=== PATIENT | male | born 1950 | race Two or more races ===

== ENCOUNTER 2019-12-26 10:54 | Observation (INO) | payer MEDICAID, MEDICARE ==
[~2019-12-26] VITALS: Ht 175.3 cm; Wt 74.8 kg
[~2019-12-26 10:54] MED LIST: ACET-2065 PO; ALBU18HF INH; BUDE10.22 INH; IPRA4AER INH; LEVO500T47 PO; MONT10TA6 PO; PRED10TA PO; PRED10TA14 PO; TRAZ50TA66 PO
--- NOTE | 2019-12-26 11:26 | NUR ---
PT AMBULATORY FROM TRIAGE. C/O LEFT SIDE C/P ONSET THIS MORNING AT 0700, DESCRIBES A PRESSURE FEELING, INCREASES WITH INSPIRATION AND PALPATION. STATES PAIN CURRENTLY 7/10. DR PERALES AT BEDSIDE, PT ASSESSMENT POC DISCUSSED AND QUESTIONS ANSWERED.
[2019-12-26] MEDS ORDERED: NITROGLYCERIN SINGLE TAB 0.4 MG SL PRN (11:30)
[2019-12-26] MEDS ORDERED: ASPIRIN 81 MG TABLET CHEW PO ONE (11:30)
[2019-12-26] MEDS ORDERED: SODIUM CHLORIDE FLUSH 10ML SYR IVF ONE (11:30)
--- NOTE | 2019-12-26 11:38 | NUR ---
PT TO RADIOLOGY WITH TECH TRANSPORT
[2019-12-26] MEDS ORDERED: NITROGLYCERIN SINGLE TAB 0.4 MG SL ONE ×2 (11:42→12:01)
[2019-12-26] MEDS ORDERED: ASPIRIN 81 MG TABLET CHEW ONE ×2 (11:42→12:01)
--- NOTE | 2019-12-26 12:00 | NUR ---
Pt medicated per emar.
[2019-12-26 12:11] LABS: BASOPHILS # (AUTO) 0.02 x10^3/uL (0-0.1); BASOPHILS % (AUTO) 0 % (0-1); EOSINOPHILS # (AUTO) 0.34 x10^3/uL (0-0.4); EOSINOPHILS % (AUTO) 5 % (1-7); LYMPHOCYTES # (AUTO) 1.98 x10^3/uL (1-3.4); LYMPHOCYTES % (AUTO) 29 % (22-44); MD NO; MEAN CORPUSCULAR HEMOGLOBIN 28.4 pg (27.5-34.5); MEAN CORPUSCULAR HGB CONC 32.9 g/dL (33.2-36.2); MEAN CORPUSCULAR VOLUME 86.4 fL (81-97); MEAN PLATELET VOLUME 7.4 fL (7.4-10.4); MONOCYTES # (AUTO) 0.74 x10^3/uL (0.2-0.8); MONOCYTES % (AUTO) 11 % (2-9); NEUTROPHILS # (AUTO) 3.68 x10^3/uL (1.8-6.8); NEUTROPHILS % (AUTO) 54 % (42-75); PLATELET COUNT 270 x10^3/uL (130-400); RED BLOOD COUNT 5.46 x10^6/uL (4.38-5.82); RED CELL DISTRIBUTION WIDTH 14.3 % (9.4-14.8)
--- NOTE | 2019-12-26 12:18 | NUR ---
Pt given one nitro for pain.
[2019-12-26 12:19] LABS: ALBUMIN 3.4 g/dL (3.4-5.0); ANION GAP 4 mmol/L (5-15); CALCIUM 8.9 mg/dL (8.5-10.1); CHLORIDE 107 mmol/L (98-107); CREATININE 1.02 mg/dL (0.7-1.3)
[2019-12-26 12:22] LABS: TROPONIN I < 0.015 ng/mL (0.000-0.045)
[2019-12-26] MEDS ORDERED: SODIUM CHLORIDE FLUSH 10ML SYR IVF PRN (13:30)
[2019-12-26] MEDS ORDERED: hydrALAzine 20 MG/ML, 1ML IVPush PRN (14:30)
[2019-12-26] MEDS ORDERED: ONDANSETRON ODT 4 MG PO PRN (14:30)
[2019-12-26] MEDS ORDERED: METOCLOPRAMIDE 5 MG/ML, 2ML IVPush PRN (14:30)
[2019-12-26] MEDS ORDERED: POLYETHYLENE GLYCOL 17 GM PACKET PO PRN (14:30)
[2019-12-26] MEDS ORDERED: LABETALOL 5MG/ML, 20ML IVPush PRN (14:30)
[2019-12-26] MEDS ORDERED: DOCUSATE 100 MG CAPSULE PO PRN (14:30)
[2019-12-26] MEDS ORDERED: NITROGLYCERIN 0.4 MG BOTTLE (25 TABS) SL PRN ×2 (14:30→23:30)
[2019-12-26] MEDS ORDERED: ACETAMINOPHEN 325 MG TABLET PO PRN (14:30)
[2019-12-26] MEDS ORDERED: TRAZODONE 50MG TABLET PO PRN (14:30)
[2019-12-26 14:35] VITALS: BP 108/70
[2019-12-26] MEDS ORDERED: TRAZ-96 PO (14:59)
[2019-12-26] MEDS: BUDESONIDE 0.5 MG/2 ML INHA NPPB SCH ×2 (15:00→19:19)
[2019-12-26] MEDS ORDERED: ALBUTEROL SULFATE 2.5 MG/3 ML NPPB PRN ×2 (15:00→15:26)
[2019-12-26] MEDS ORDERED: ALBUTEROL/IPRATROPIUM 2.5MG/0.5MG, 3 ML NPPB PRN (15:30)
[2019-12-26 15:37] LABS: TROPONIN I < 0.015 ng/mL (0.000-0.045)
[2019-12-26] MEDS: ENOXAPARIN 40 MG/0.4 ML SQ SCH (15:37)
[2019-12-26] MEDS: SODIUM CHLORIDE 0.9% 1,000 ML IV SCH (15:37)
[2019-12-26 21:07] LABS: TROPONIN I < 0.015 ng/mL (0.000-0.045)
[2019-12-26] MEDS: FAMOTIDINE 20 MG TABLET PO SCH (21:53)
[2019-12-26 21:58] VITALS: BP 131/72
[2019-12-26 23:00] VITALS: BP 119/69
[2019-12-26] MEDS ORDERED: NITROGLYCERIN 0.4 MG/SPRAY SL PRN (23:30)
[2019-12-27 00:54] VITALS: BP 95/57
[2019-12-27 06:02] LABS: BASOPHILS # (AUTO) 0.03 x10^3/uL (0-0.1); BASOPHILS % (AUTO) 0 % (0-1); EOSINOPHILS # (AUTO) 0.38 x10^3/uL (0-0.4); EOSINOPHILS % (AUTO) 5 % (1-7); LYMPHOCYTES # (AUTO) 2.93 x10^3/uL (1-3.4); LYMPHOCYTES % (AUTO) 38 % (22-44); MD NO; MEAN CORPUSCULAR HEMOGLOBIN 28.1 pg (27.5-34.5); MEAN CORPUSCULAR HGB CONC 32.5 g/dL (33.2-36.2); MEAN CORPUSCULAR VOLUME 86.3 fL (81-97); MONOCYTES # (AUTO) 0.79 x10^3/uL (0.2-0.8); MONOCYTES % (AUTO) 10 % (2-9); NEUTROPHILS % (AUTO) 47 % (42-75); PLATELET COUNT 240 x10^3/uL (130-400); RED BLOOD COUNT 5.04 x10^6/uL (4.38-5.82); RED CELL DISTRIBUTION WIDTH 14.5 % (9.4-14.8)
[2019-12-27 06:10] LABS: ANION GAP 6 mmol/L (5-15); CALCIUM 8.7 mg/dL (8.5-10.1); CHLORIDE 111 mmol/L (98-107); CHOLESTEROL, TOTAL 203 mg/dL (140-239); CREATININE 1.09 mg/dL (0.7-1.3)
[2019-12-27 06:12] LABS: CHOL/HDL RATIO 5.3; HDL CHOL % 19 % (26-37); HDL CHOLESTEROL (DIRECT) 38 mg/dL (40-60); LDL CHOLESTEROL,CALCULATED 141 mg/dL (54-169); LDL/HDL RATIO 3.7 (0.5-3.0); TRIGLYCERIDES 120 mg/dL (50-200); VLDL CHOLESTEROL 24 mg/dL (0-25)
[2019-12-27] MEDS: SODIUM CHLORIDE 0.9% 1,000 ML IV SCH (07:36)
[2019-12-27 07:55] VITALS: BP 121/81
[2019-12-27] MEDS: FAMOTIDINE 20 MG TABLET PO SCH ×2 (09:04→20:54)
[2019-12-27] MEDS: MONTELUKAST 10 MG TABLET PO SCH (09:04)
[2019-12-27] MEDS: BUDESONIDE 0.5 MG/2 ML INHA NPPB SCH ×2 (09:14→20:18)
[2019-12-27] MEDS: ACETAMINOPHEN 325 MG TABLET PO SCH ×4 (11:30→23:30)
[2019-12-27] MEDS: ALBUTEROL/IPRATROPIUM 2.5MG/0.5MG, 3 ML NPPB SCH ×2 (12:30→20:18)
[2019-12-27] MEDS: METHOCARBAMOL 500 MG TABLET PO SCH ×3 (13:31→20:54)
[2019-12-27 14:05] VITALS: BP 120/74
[2019-12-27] MEDS ORDERED: ASPIRIN 325 MG TABLET EC PO ONE (14:30)
[2019-12-27] MEDS ORDERED: TRAZODONE 50MG TABLET PO PRN (17:00)
[2019-12-27] MEDS: ENOXAPARIN 40 MG/0.4 ML SQ SCH (18:30)
[2019-12-27 19:34] VITALS: BP 132/71
[2019-12-28 02:03] VITALS: BP 119/71
[2019-12-28] MEDS: ACETAMINOPHEN 325 MG TABLET PO SCH ×4 (03:15→15:12)
[2019-12-28] MEDS: METHOCARBAMOL 500 MG TABLET PO SCH ×3 (05:47→15:43)
[2019-12-28 08:19] VITALS: BP 120/85
[2019-12-28] MEDS: FAMOTIDINE 20 MG TABLET PO SCH (08:45)
[2019-12-28] MEDS: MONTELUKAST 10 MG TABLET PO SCH (08:45)
[2019-12-28] MEDS: BUDESONIDE 0.5 MG/2 ML INHA NPPB SCH (08:57)
[2019-12-28] MEDS: ALBUTEROL/IPRATROPIUM 2.5MG/0.5MG, 3 ML NPPB SCH (08:57)
[2019-12-28 14:13] VITALS: BP 134/86
[2019-12-28] MEDS ORDERED: METH500T7 PO (16:20)
[2019-12-28] MEDS ORDERED: TRAZ-96 PO (16:20)
== END 2019-12-28 19:55 | disposition home or self-care (01) ==
LOC: ED 12:43 → INTOOBSV 13:20 → EDIP 13:20 → 5SO 14:36
PROVIDERS: ADMIT Internal Medicine; ATTEND Internal Medicine
DX: R07.89 Other chest pain (principal); J44.9 Chronic obstructive pulmonary disease, unspecified; I34.1 Nonrheumatic mitral (valve) prolapse; G47.00 Insomnia, unspecified; I11.9 Hypertensive heart disease without heart failure; I35.8 Other nonrheumatic aortic valve disorders; I10 Essential (primary) hypertension; F41.9 Anxiety disorder, unspecified; M81.0 Age-related osteoporosis without current pathological fracture
CPT/HCPCS: 36415; 71046; 80048; 80061; 82040; 83735; 83880; 84100; 84145; 84443; 84484; 85025; 85379; 93005; 93017; 93306; 94640; 96372; 99285; G0378; J1650; J7030; J7613; J7620; J7626